=== PATIENT | male | born 1980 | race African-American/Black ===

== ENCOUNTER 2018-01-03 09:32 | Emergency (ER) | payer SELFPAY ==
[~2018-01-03] VITALS: Ht 188 cm; Wt 84.0 kg
[2018-01-03 09:36] VITALS: BP 123/74
[2018-01-03] MEDS ORDERED: SILVER SULFADIAZINE 1% CREAM 25GM TOP ONE (10:15)
== END 2018-01-03 11:15 | disposition home or self-care (01) ==
LOC: ER 09:32
DX: T23.271A Burn of second degree of right wrist, initial encounter (principal); T22.111A Burn of first degree of right forearm, initial encounter; T31.0 Burns involving less than 10% of body surface; T75.00XA Unspecified effects of lightning, initial encounter; F17.200 Nicotine dependence, unspecified, uncomplicated; F12.10 Cannabis abuse, uncomplicated; X08.8XXA Exposure to other specified smoke, fire and flames, initial encounter; Y93.89 Activity, other specified; Y92.89 Other specified places as the place of occurrence of the external cause; Y99.8 Other external cause status
CPT/HCPCS: 16020; 99283; 99284

== ENCOUNTER 2018-01-08 08:45 | Emergency (ER) | payer SELFPAY | END 2018-01-08 10:11 | disposition left against medical advice (07) | LOC: ER 08:45 | DX: Z53.21 Procedure and treatment not carried out due to patient leaving prior to being seen by health care provider (principal) ==

== ENCOUNTER 2019-03-05 07:57 | Emergency (ER) | payer MEDICAID ==
[~2019-03-05] VITALS: Ht 188 cm; Wt 77.0 kg
[2019-03-05 08:01] VITALS: BP 122/83
[2019-03-05] MEDS ORDERED: IBUPROFEN 800MG TABLET PO ONE (10:00)
== END 2019-03-05 10:51 | disposition home or self-care (01) ==
LOC: ER 08:19
DX: S61.302A Unspecified open wound of right middle finger with damage to nail, initial encounter (principal); F12.10 Cannabis abuse, uncomplicated; W23.0XXA Caught, crushed, jammed, or pinched between moving objects, initial encounter; Y93.89 Activity, other specified; Y92.89 Other specified places as the place of occurrence of the external cause; Y99.8 Other external cause status
CPT/HCPCS: 29130; 73140; 99283

== ENCOUNTER 2019-04-02 14:07 | Emergency (ER) | payer MEDICAID ==
[~2019-04-02] VITALS: Ht 188 cm; Wt 79.0 kg
[2019-04-02 19:42] VITALS: BP 129/81
== END 2019-04-02 19:47 | disposition home or self-care (01) ==
LOC: ER 14:07
DX: R05 Cough (principal); R50.9 Fever, unspecified; F17.200 Nicotine dependence, unspecified, uncomplicated; F12.10 Cannabis abuse, uncomplicated
CPT/HCPCS: 71045; 99283

== ENCOUNTER 2019-11-19 13:41 | Emergency (ER) | payer MEDICAID, OTHER ==
[~2019-11-19] VITALS: Ht 188 cm; Wt 79.0 kg
[2019-11-19] MEDS ORDERED: PREDNISONE 20MG TABLET PO ONE (18:15)
[2019-11-19] MEDS ORDERED: IPRATROPIUM/ALBUTEROL 0.5-3(2.5)MG/3ML NEB HHN ONE (18:15)
[2019-11-19] MEDS ORDERED: ACETAMINOPHEN 325MG TABLET PO ONE (18:15)
[2019-11-19 18:40] LABS: BASOPHILS % 0.3 % (0.0-2.0); EOSINOPHILS % 0.7 % (0.0-5.0); HEMATOCRIT. 38.2 % (42.0-52.0); HEMOGLOBIN. 13.2 g/dL (14.0-18.0); LYMPHOCYTES % 10.3 % (20.0-50.0); MEAN CORPUSCULAR HEMOGLOBIN 32.1 pg (28.0-32.0); MEAN CORPUSCULAR VOLUME 92.7 fL (80.0-94.0); MEAN PLATELET VOLUME 7.5 fl (7.4-10.4); MONOCYTES % 5.1 % (2.0-8.0); NEUTROPHILS % 83.6 % (40.0-76.0); PLATELET 168 x1000/uL (130-400); RED BLOOD CELL COUNT 4.11 mill/uL (4.7-6.1)
[2019-11-19 18:46] LABS: CHLORIDE 105 mEq/L (98-107)
[2019-11-19 21:20] VITALS: BP 98/54
== END 2019-11-19 21:22 | disposition home or self-care (01) ==
LOC: ER 13:41
DX: J06.9 Acute upper respiratory infection, unspecified (principal); J45.909 Unspecified asthma, uncomplicated; M79.10 Myalgia, unspecified site; R51 Headache; F12.10 Cannabis abuse, uncomplicated; F17.200 Nicotine dependence, unspecified, uncomplicated
CPT/HCPCS: 36415; 71045; 80048; 85025; 93005; 99285; J7512

== ENCOUNTER 2024-05-03 14:40 | Emergency (ER) | payer SELFPAY ==
[~2024-05-03] VITALS: Ht 180.3 cm; Wt 75.0 kg
[2024-05-03 14:45] VITALS: PULSE 85
[2024-05-03 14:49] VITALS: BP 108/62; RESP 18; TEMP 98.1; O2SAT 96
[2024-05-03] MEDS ORDERED: BALANCED SALT IRRIG SOLN 15ML IR ONE (17:30)
[2024-05-03] MEDS: FLUORESCEIN SODIUM 1MG/STRIP LEFTEYE ONE (18:38)
[2024-05-03] MEDS: TETRACAINE 0.5% OPHTH DROPS 4ML LEFTEYE ONE (18:38)
[2024-05-03] MEDS ORDERED: ERYT1OIN6 LEFTEYE (18:48)
[2024-05-03] MEDS ORDERED: NAPR-681 PO (18:48)
[2024-05-03] MEDS ORDERED: DOXY100T28 MT (18:48)
== END 2024-05-03 19:06 | disposition home or self-care (01) ==
LOC: ER 14:40
DX: S05.02XA Injury of conjunctiva and corneal abrasion without foreign body, left eye, initial encounter (principal); H10.32 Unspecified acute conjunctivitis, left eye; X58.XXXA Exposure to other specified factors, initial encounter; Y93.89 Activity, other specified; Y92.89 Other specified places as the place of occurrence of the external cause; Y99.8 Other external cause status
CPT/HCPCS: 99283